=== PATIENT | male | born 1950 | race Caucasian/White ===

== ENCOUNTER 2018-02-08 10:10 | Observation (INO) ==
[2018-02-08 10:17] VITALS: TEMP 97.3
[2018-02-08] MEDS ORDERED: Sod Chloride 0.9% Inj 1,000 ML IV.CONT SCH ×2 (11:00→21:00)
[2018-02-08 11:11] VITALS: RESP 18
[2018-02-08 11:33] LABS: Baso % (Auto) 0.3 % (0.0-2.0); Eos % (Auto) 0.1 % (0.0-4.0); Hematocrit 23.1 % (39.0-51.0); Hemoglobin 8.2 gm/dL (13.0-17.0); Lymph # (Auto) 0.7 th/mm3 (1.0-4.8); Lymph % (Auto) 7.8 % (9.0-44.0); Mean Corpuscular HGB Conc 35.4 % (32.0-36.0); Mean Corpuscular Hemoglobin 31.6 pg (27.0-34.0); Mean Corpuscular Volume 89.1 fL (80.0-100.0); Mean Platelet Volume 6.6 fL (7.0-11.0); Mono # (Auto) 1.6 th/mm3 (0.0-0.9); Mono % (Auto) 18.3 % (0.0-8.0); Neut # (Auto) 6.6 th/mm3 (1.8-7.7); Neut % (Auto) 73.5 % (16.0-70.0); Platelet Count 298 th/mm3 (150-450); Red Cell Distribution Width 12.6 % (11.6-17.2); White Blood Count 8.9 th/mm3 (4.0-11.0)
--- NOTE | 2018-02-08 11:40 | ED ---
HPI General Chief complaint: Dizziness Stated complaint: Cardiac Time Seen by Provider: 02/08/18 11:08 History of Present Illness HPI narrative: 67-year-old male with a history of hypertension, hyperlipidemia, CAD, TIA, RA, GERD, stage IV lung cancer currently on chemotherapy presents to the emergency department for evaluation of lightheadedness and low blood pressure. Patient states that this morning about 30 minutes after taking his blood pressure medications and eating his breakfast he felt suddenly lightheaded and states he was "seeing spots." States that he felt as though he was going to pass out however never lost consciousness, denies any falls. States that he checked his blood pressure when this occurred and the reading was 63/37, he drank some water and rechecked it and it was 84/50. States that this lasted about 1 hour. States that he is no longer having any of these symptoms. He denies any associated chest pain, shortness of breath, difficulty breathing, nausea, vomiting, diarrhea, black or bloody stool, abdominal pain, numbness or tingling, weakness. The patient is here with his visiting from [place] for the week, they will go home on Tuesday. He received his first IV chemotherapy and immunotherapy treatment 01/12/18. No other complaints or concerns. Related Data Home Medications Medication Instructions Recorded Confirmed amlodipine 5 mg PO DAILY 02/08/18 02/08/18 ascorbic acid (vitamin C) [Vitamin 1,000 mg PO DAILY 02/08/18 02/08/18 C] aspirin 162 mg PO DAILY 02/08/18 02/08/18 atorvastatin 60 mg PO DAILY 02/08/18 02/08/18 calcium carbonate 500 mg PO BID 02/08/18 02/08/18 carvedilol 6.25 mg PO DAILY 02/08/18 02/08/18 clopidogrel [Plavix] 75 mg PO DAILY 02/08/18 02/08/18 folic acid 1 mg PO DAILY 02/08/18 02/08/18 leflunomide [Arava] 20 mg PO DAILY 02/08/18 02/08/18 losartan-hydrochlorothiazide 1 tab PO DAILY 02/08/18 02/08/18 multivitamin with minerals 1 tab PO DAILY 02/08/18 02/08/18 [Multiple Vitamin-Minerals] omeprazole 20 mg PO DAILY 02/08/18 02/08/18 prochlorperazine maleate 10 mg PO Q6H PRN 02/08/18 02/08/18 Allergies Allergy/AdvReac Type Severity Reaction Status Date / Time ciprofloxacin [From Cipro] Allergy Hives Verified 02/08/18 10:28 Review of Systems ROS: all other systems reviewed are negative [facility] Medical History Medical History CAD (coronary artery disease) (Acute) 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 (Acute) Hypercholesterolemia (Acute) Hypertension (Acute) Lung cancer (Acute) Pulmonary fibrosis (Acute) Rheumatoid arthritis (Acute) TIA (transient ischemic attack) (Acute) Surgical History Surgical History History of vasectomy (Acute) Social History Social History Smoking Status: Former smoker How Often Do You Have a Drink Containing Alcohol: Monthly or less Recent Travel in [facility] within the Last 8 Weeks: Yes Recent Out of Country Travel within the Last 8 Weeks: No Immunization History Tetanus Immunization: <5 Years Hx Influenza Vaccine This Season: Yes Exam Narrative Exam Narrative: GENERAL: Thin pleasant male patient in no acute distress who is nontoxic appearing. SKIN: Warm and dry. HEAD: Normocephalic and atraumatic. EYES: No injection, drainage, or hyphema noted. PERRLA. EOMI. ENT: No nasal drainage noted. Oropharynx is clear NECK: Supple and the trachea is midline. CARDIOVASCULAR: Regular rate and rhythm. RESPIRATORY: Breath sounds are equal bilaterally with no accessory muscle use, wheezing, rhonchi, or crackles. GASTROINTESTINAL: Abdomen is soft, non-tender, and nondistended. MUSCULOSKELETAL: No obvious deformities, swelling, cyanosis, or ecchymosis is present throughout the upper and lower extremities. Patient has full range of motion without any signs of neurovascular compromise. Distal pulses are 2+ throughout. NEUROLOGICAL: Awake, alert, and oriented. Normal speech and gait. Cranial nerves are grossly intact. Procedures Hemaprompt Stool Procedural Steps Taken: specimen placed in appropriate test area, developer placed on specimen and control areas and controls appropriately positive and negative Hemaprompt Stool Result: negative Course Initial Documented Vital Signs Temperature 97.3 F L 02/08/18 10:16 Pulse Rate 82 02/08/18 10:16 Respiratory Rate 15 02/08/18 10:16 Blood Pressure 83/53 L 02/08/18 10:16 Pulse Oximetry 96 02/08/18 10:16 Last Documented Vital Signs Temperature 97.3 F L 02/08/18 10:16 Pulse Rate 77 02/08/18 11:09 Respiratory Rate 18 02/08/18 11:09 Blood Pressure 94/50 L 02/08/18 11:09 Pulse Oximetry 95 02/08/18 11:09 Medical Decision Making MDM Narrative Medical decision making narrative: 67-year-old male presents to the emergency department for evaluation of lightheadedness and presyncopal symptoms with low blood pressure. Patient is afebrile, vital signs are stable. His blood pressure is noted to be low 94/50. IV access is obtained, labs of been drawn and sent. Patient is placed on cardiac telemetry and pulse oximetry monitoring. Patient is administered IV fluids. EKG shows sinus rhythm with lateral and inferior ST changes of indeterminant age , no acute ST elevations or depressions. CBC shows anemia with a hemoglobin 8.2, hematocrit 23.1. Stool guaiac negative. CMP shows potassium is slightly low at 3.4 and sodium is a little low at 135, otherwise unremarkable. Troponin is 0.04. BNP is unremarkable. Patient's blood pressure has improved with fluids. Given his multiple comorbidities and risk factors I think it is appropriate for the patient to be kept in observation on tele with repeat cardiac enzymes. I spoke with Dr. Armstrong [facility] who agrees to accept patient to his service. Medical Screen Exam Complete: Yes Emergency Medical Condition: Yes Differential Diagnosis Differential Diagnosis: Dehydration versus medication reaction versus electrolyte abnormality versus anemia Lab Data Result diagrams: 02/08/18 11:03 02/08/18 11:03 Lab Results 02/08/18 02/08/18 02/08/18 Range/Units 11:03 11:03 11:03 WBC 8.9 (4.0-11.0) th/mm3 RBC 2.60 L (4.50-5.90) mil/mm3 Hgb 8.2 L (13.0-17.0) gm/dL Hct 23.1 L (39.0-51.0) % MCV 89.1 (80.0-100.0) fL MCH 31.6 (27.0-34.0) pg MCHC 35.4 (32.0-36.0) % RDW 12.6 (11.6-17.2) % Plt Count 298 (150-450) th/mm3 MPV 6.6 L (7.0-11.0) fL Neut % (Auto) 73.5 H (16.0-70.0) % Lymph % (Auto) 7.8 L (9.0-44.0) % [place] % (Auto) 18.3 H (0.0-8.0) % Eos % (Auto) 0.1 (0.0-4.0) % Baso % (Auto) 0.3 (0.0-2.0) % Neut # (Auto) 6.6 (1.8-7.7) th/mm3 Lymph # (Auto) 0.7 L (1.0-4.8) th/mm3 [place] # (Auto) 1.6 H (0.0-0.9) th/mm3 Eos # (Auto) 0.0 (0.0-0.4) th/mm3 Baso # (Auto) 0.0 (0.0-0.2) th/mm3 WBC Differential . Differential Comment Auto diff final Sodium 135 L (136-145) meq/L Potassium 3.4 L (3.5-5.1) meq/L Chloride 100 (98-107) meq/L Carbon Dioxide 25.0 (21.0-32.0) meq/L Anion Gap 10 (5-15) meq/L BUN 15 (7-18) mg/dL Creatinine 1.00 (0.60-1.30) mg/dL Estimated GFR 75 L (>89) mL/min Random Glucose 113 H (74-106) mg/dL Calcium 7.9 L (8.5-10.1) mg/dL Total Bilirubin 0.4 (0.2-1.0) mg/dL AST 32 (15-37) U/L ALT 24 (12-78) U/L Alkaline Phosphatase 118 H (45-117) U/L Troponin I 0.04 (0.02-0.05) ng/mL B-Natriuretic Peptide 82 (0-100) pg/mL Total Protein 6.0 L (6.4-8.2) g/dL Albumin 2.5 L (3.4-5.0) g/dL Imaging Data Radiologist's impression: Chest X-Ray 02/08/18 11:25 CONCLUSION: Bilateral pulmonary infiltrates most pronounced within the left upper lobe. Discharge Plan Physicians Team ED Provider: Deshpande,Peter ED Midlevel Provider: Gifty Win Primary Care Provider: UNKNOWN, Rxs /Orders / Referrals /Forms Prescriptions: No Action atorvastatin 40 mg Tablet 60 mg PO DAILY RF: 0 carvedilol 6.25 mg Tablet 6.25 mg PO DAILY RF: 0 calcium carbonate 500 mg calcium (1,250 mg) Capsule 500 mg PO BID RF: 0 ascorbic acid (vitamin C) [Vitamin C] 1,000 mg Tablet Extended Release 1,000 mg PO DAILY RF: 0 clopidogrel [Plavix] 75 mg Tablet 75 mg PO DAILY RF: 0 amlodipine 5 mg Tablet 5 mg PO DAILY RF: 0 prochlorperazine maleate 10 mg Tablet 10 mg PO Q6H PRN (Reason: Nausea) RF: 0 leflunomide [Arava] 20 mg Tablet 20 mg PO DAILY RF: 0 omeprazole 20 mg Capsule,Delayed Release(Dr/Ec) 20 mg PO DAILY RF: 0 aspirin 81 mg Tablet,Chewable 162 mg PO DAILY RF: 0 folic acid 1 mg Tablet 1 mg PO DAILY RF: 0 multivitamin with minerals [Multiple Vitamin-Minerals] Tablet 1 tab PO DAILY RF: 0 losartan-hydrochlorothiazide 100-12.5 mg Tablet 1 tab PO DAILY RF: 0 Discharge Interventions Interventions: Vital Signs Last Done: 02/08/18 11:09 Status ED Status: With Doctor
[2018-02-08 11:51] LABS: Albumin 2.5 g/dL (3.4-5.0); Anion Gap 10 meq/L (5-15); Aspartate Aminotransferase 32 U/L (15-37); Blood Urea Nitrogen 15 mg/dL (7-18); Calcium 7.9 mg/dL (8.5-10.1); Chloride 100 meq/L (98-107); Glomerular Filtration Rate 75 mL/min (>89); Glucose,Random 113 mg/dL (74-106); Potassium 3.4 meq/L (3.5-5.1); Sodium 135 meq/L (136-145)
[2018-02-08 11:52] LABS: Alanine Aminotransferase 24 U/L (12-78)
--- NOTE | 2018-02-08 11:53 | XR ---
EXAM DATE: 02/08/2018 11:41 AM EDT AGE/SEX: 67 years / Male INDICATIONS: Short of breath and dizziness. CLINICAL DATA: This is the patient's initial encounter. Patient reports that signs and symptoms have been present for 1 day and indicates a pain score of 0/10. MEDICAL/SURGICAL HISTORY: Carcinoma, lung. . [place]us[place]ort. COMPARISON: No prior exams available for comparison. FINDINGS: A single AP view of the chest demonstrates dense consolidation involving the left upper lobe with les s dense mixed interstitial and intra-alveolar opacities throughout the remaining aspects of both lung s. It is more pronounced on the left. No effusions. Heart is normal in size. Port-A-Cath overlies the right chest. Bony structures are unremarkable. CONCLUSION: Bilateral pulmonary infiltrates most pronounced within the left upper lobe. Electronically signed by: Zeke Davis MD 02/08/2018 11:52 AM EDT
[2018-02-08 11:56] LABS: Alkaline Phosphatase 118 U/L (45-117); Troponin I 0.04 ng/mL (0.02-0.05)
--- NOTE | 2018-02-08 13:06 | ECG ---
Date Performed: 02/08/2018 Time Performed: 10:32:03 PTAGE: 67 years EKG: Sinus rhythm PROBABLE LATERAL MYOCARDIAL INFARCTION INFERIOR MYOCARDIAL INFARCTION ABNORMAL ECG NO PREVIOUS TRACING DOCTOR: Kaz Staton Interpretating Date/Time 02/08/2018 13:04:38
[2018-02-08] MEDS ORDERED: Bisacodyl 10 MG Supp RECTAL PRN (14:06)
[2018-02-08] MEDS ORDERED: Acetaminophen 325 MG Tablet PO PRN (14:06)
--- NOTE | 2018-02-08 14:20 | P.HP ---
History of Present Illness Primary Care Physician: UNKNOWN History of Present Illness: This is a 67-year-old male with a history of hypertension, congestive heart failure, hyperlipidemia, coronary artery disease, TIA, rheumatoid arthritis, GERD and stage IV lung cancer on chemotherapy last treatment January 12, 2018. He presents to the emergency department because of lightheadedness and low blood pressure. Patient was in his usual state of health until this morning. After taking his blood pressure medications and eating his breakfast, he suddenly felt lightheaded and was seeing spots. States he felt he was going to pass out. Denies falls, chest pain, shortness of breath, palpitations, diaphoresis, fever, chills, shortness of breath, abdominal pain, diarrhea and UTI symptoms. Has chronic cough with clear sputum. He checked his blood pressure and was low at 64/40. He drank some water and rechecked it and it was 84/50. States his symptoms lasted for an hour. Denies any recent medication adjustment. In the emergency department, he received fluid hydration and patient states he feels much better. He was able to get out of bed twice with no symptoms. States he lost 30 pounds in the past 3 months. All other systems reviewed negative. Family history no cancer. EKG with tracing interpreted by me with sinus rhythm no ST elevation. 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 Hypercholesterolemia Hypertension Lung cancer Pulmonary fibrosis Rheumatoid arthritis TIA (transient ischemic attack) - Surgical History Surgical History: Surgical History (Last Updated 02/08/18 @ 10:33 by Anne Nieto) History of vasectomy - Tobacco History Smoking Status: Former smoker - Alcohol History How Often Do You Have a Drink Containing Alcohol: Monthly or less - Travel History Recent Travel in the [place] Within the Last 8 Weeks: Yes Recent Travel Out of the Country Within the Last 8 Weeks: No - Immunization History Tetanus Immunization: <5 Years Hx Influenza Vaccine This Season: Yes Medications and Allergies Active Medications: Active Medications Acetaminophen (Tylenol) 650 mg PO Q4H PRN PRN Reason: Temp > 100.4 Al Hydroxide/Mg Hydroxide (Milk Of Magnesia Liq) 30 ml PO Q12H PRN PRN Reason: Mild Constipation Aspirin (Aspirin Chew) 162 mg PO DAILY [facility] Atorvastatin Calcium (Lipitor) 60 mg PO DAILY [facility] Bisacodyl (Dulcolax Supp) 10 mg RECTAL DAILY PRN PRN Reason: SEVERE CONSITIPATION Clopidogrel Bisulfate (Plavix) 75 mg PO DAILY [facility] Folic Acid (Folic Acid) 1 mg PO DAILY [facility] Heparin Sodium (Porcine) (Heparin Inj) 5,000 units SQ Q8H [facility] Sodium Chloride (Ns Inj) 1,000 mls @ 100 mls/hr IV.CONT .Q10H [facility] Last Admin: 02/08/18 11:05 Dose: 100 mls/hr Lactulose (Lactulose Liq) 30 ml PO DAILY PRN PRN Reason: SEVERE CONSITIPATION Non-Formulary Medication (Leflunomide) 20 mg PO DAILY [facility] Non-Formulary Medication (Omeprazole [Omeprazole]) 20 mg PO DAILY [facility] Ondansetron HCl (Zofran Inj) 4 mg IV.PUSH Q6H PRN PRN Reason: NAUSEA OR VOMITING Potassium Chloride (K-Dur) 40 meq PO ONCE ONE Stop: 02/08/18 13:51 Prochlorperazine Maleate (Compazine) 10 mg PO Q6H PRN PRN Reason: Nausea Senna/Docusate Sodium (Sonam-Colace) 1 tab PO BID [facility] Sennosides (Senokot) 17.2 mg PO Q12H PRN PRN Reason: Moderate Constipation Sodium Chloride (Ns Flush) 2 ml IV.FLUSH PRN PRN PRN Reason: FLUSH AFTER USING IV ACCESS Allergies Allergy/AdvReac Type Severity Reaction Status Date / Time ciprofloxacin [From Cipro] Allergy Hives Verified 02/08/18 10:28 Home Medications Medication Instructions Recorded Confirmed Type amlodipine 5 mg PO DAILY 02/08/18 02/08/18 History ascorbic acid (vitamin C) [Vitamin 1,000 mg PO DAILY 02/08/18 02/08/18 History C] aspirin 162 mg PO DAILY 02/08/18 02/08/18 History atorvastatin 60 mg PO DAILY 02/08/18 02/08/18 History calcium carbonate 500 mg PO BID 02/08/18 02/08/18 History carvedilol 6.25 mg PO DAILY 02/08/18 02/08/18 History clopidogrel [Plavix] 75 mg PO DAILY 02/08/18 02/08/18 History folic acid 1 mg PO DAILY 02/08/18 02/08/18 History leflunomide [Arava] 20 mg PO DAILY 02/08/18 02/08/18 History losartan-hydrochlorothiazide 1 tab PO DAILY 02/08/18 02/08/18 History multivitamin with minerals 1 tab PO DAILY 02/08/18 02/08/18 History [Multiple Vitamin-Minerals] omeprazole 20 mg PO DAILY 02/08/18 02/08/18 History prochlorperazine maleate 10 mg PO Q6H PRN 02/08/18 02/08/18 History Exam Vital signs: Vital Signs 02/08/18 10:16 02/08/18 10:29 02/08/18 11:09 Temperature 97.3 F L Pulse Rate 82 77 77 Respiratory Rate 15 20 18 Blood Pressure 83/53 L 97/53 L 94/50 L Pulse Oximetry 96 96 95 02/08/18 12:00 02/08/18 13:00 Temperature Pulse Rate 80 78 Respiratory Rate 18 18 Blood Pressure 107/56 L 106/62 Pulse Oximetry 97 96 Intake & Output 02/07/18 02/08/18 02/08/18 18:59 06:59 18:59 Weight 61.235 kg Narrative: GENERAL: Well-developed, well-nourished in no distress on room air SKIN: Warm and dry. HEAD: Atraumatic. Normocephalic. EYES: Pupils equal and round. No scleral icterus. No injection or drainage. ENT: No nasal bleeding or discharge. Mucous membranes pink and moist. NECK: Trachea midline. No JVD. CARDIOVASCULAR: Regular rate and rhythm. RESPIRATORY: No accessory muscle use. Clear to auscultation. Breath sounds equal bilaterally. GASTROINTESTINAL: Abdomen soft, non-tender, nondistended. MUSCULOSKELETAL: Extremities without clubbing, cyanosis, or edema. No obvious deformities. NEUROLOGICAL: Awake and alert. No obvious cranial nerve deficits. Motor grossly within normal limits. Five out of 5 muscle strength in the arms and legs. Normal speech. PSYCHIATRIC: Appropriate mood and affect; insight and judgment normal. Results - Labs CBC & Chem 7: 02/08/18 11:03 02/08/18 11:03 Labs: Laboratory Results - last 24 hr 02/08/18 02/08/18 02/08/18 11:03 11:03 11:03 WBC 8.9 RBC 2.60 L Hgb 8.2 L Hct 23.1 L MCV 89.1 MCH 31.6 MCHC 35.4 RDW 12.6 Plt Count 298 MPV 6.6 L Neut % (Auto) 73.5 H Lymph % (Auto) 7.8 L [place] % (Auto) 18.3 H Eos % (Auto) 0.1 Baso % (Auto) 0.3 Neut # (Auto) 6.6 Lymph # (Auto) 0.7 L [place] # (Auto) 1.6 H Eos # (Auto) 0.0 Baso # (Auto) 0.0 WBC Differential . Differential Comment Auto diff final Sodium 135 L Potassium 3.4 L Chloride 100 Carbon Dioxide 25.0 Anion Gap 10 BUN 15 Creatinine 1.00 Estimated GFR 75 L Random Glucose 113 H Calcium 7.9 L Total Bilirubin 0.4 AST 32 ALT 24 Alkaline Phosphatase 118 H Troponin I 0.04 B-Natriuretic Peptide 82 Total Protein 6.0 L Albumin 2.5 L - Imaging Impressions Chest X-Ray 02/08/18 11:25 CONCLUSION: Bilateral pulmonary infiltrates most pronounced within the left upper lobe. Caprini VTE Risk Assessment Caprini VTE Risk Assessment: Moderate/High Risk (score >= 2) Caprini Risk Assessment Model: Point Value = 1 Point Value = 2 Point Value = 3 Point Value = 5 Age 41-60 Minor surgery BMI > 25 kg/m2 Swollen legs Varicose veins or History of unexplained or recurrent spontaneous Oral contraceptives or hormone replacement Sepsis (< 1 month) Serious lung disease, including pneumonia (< 1 month) Abnormal pulmonary function Acute myocardial infarction Congestive heart failure (< 1 month) History of inflammatory bowel disease Medical patient at bed rest Age 61-74 Arthroscopic surgery Major open surgery (> 45 min) Laparoscopic surgery (> 45 min) Malignancy Confined to bed (> 72 hours) Immobilizing plaster cast Central venous access Age >= 75 History of VTE Family history of VTE Factor V Leiden Prothrombin [id number] Lupus anticoagulant Anticardiolipin antibodies Elevated serum homocysteine Heparin-induced thrombocytopenia Other congenital or acquired thrombophilia Stroke (< 1 month) Elective arthroplasty Hip, pelvis, or leg fracture Acute spinal cord injury (< 1 month) Prophylaxis Regimen: Total Risk Factor Score Risk Level Prophylaxis Regimen 0-1 Low Early ambulation 2 Moderate Order ONE of the following: *Sequential Compression Device (SCD) *Heparin 5000 units SQ BID 3-4 Higher Order ONE of the following medications: *Heparin 5000 units SQ TID *Enoxaparin/Lovenox 40 mg SQ daily (WT < 150 kg, CrCl > 30 mL/min) *Enoxaparin/Lovenox 30 mg SQ daily (WT < 150 kg, CrCl > 10-29 mL/min) *Enoxaparin/Lovenox 30 mg SQ BID (WT < 150 kg, CrCl > 30 mL/min) AND/OR *Sequential Compression Device (SCD) 5 or more Highest Order ONE of the following medications: *Heparin 5000 units SQ TID (Preferred with Epidurals) *Enoxaparin/Lovenox 40 mg SQ daily (WT < 150 kg, CrCl > 30 mL/min) *Enoxaparin/Lovenox 30 mg SQ daily (WT < 150 kg, CrCl > 10-29 mL/min) *Enoxaparin/Lovenox 30 mg SQ BID (WT < 150 kg, CrCl > 30 mL/min) AND *Sequential Compression Device (SCD) Assessment and Plan - Plan This is a 67-year-old male with a history of hypertension, congestive heart failure, hyperlipidemia, coronary artery disease, TIA, rheumatoid arthritis, GERD and stage IV lung cancer on chemotherapy last treatment January 12, 2018. He presents to the emergency department because of lightheadedness and low blood pressure. Near-syncope secondary to hypotension with history of hypertension on multiple antihypertensives and stage IV lung cancer on chemotherapy with associated weight loss. He feels better with fluid hydration. Will continue cautious hydration history of heart failure. Hold BP medications and obtain orthostatic vital signs in the morning. Fall precautions. Physical therapy evaluation. No evidence of infection at this time. Abnormal chest x-ray finding likely secondary to lung cancer Hypokalemia. Replace with 40 mg p.o. and check magnesium. Anemia hemoglobin 8.2. No gross bleeding. Repeat CBC in the morning. He was guaiac negative in the ED DVT prophylaxis with subcu heparin and SCD. Discharge Planning: Patient and daughter
[2018-02-08] MEDS ORDERED: Heparin - SQ 10,000 UNITS/ML Vial SQ SCH (14:30)
[2018-02-08 14:54] VITALS: BP 131/65; PULSE 81; O2SAT 98
--- NOTE | 2018-02-08 17:33 | P.AMA ---
AMA Note - AMA Note AMA Statement: Patient Danish Perez has decided to leave the hospital against medical advice. This patient has the capacity to refuse care and understands the risks of leaving, including permanent disability and/or , and has had an opportunity to ask questions about his/her condition. The patient has been informed that he/she may return for care at any time, and follow up has been arranged/advised. - AMA Note Patient Condition on Discharge: Stable
[2018-02-08] MEDS ORDERED: Senna/Docusate Sodium 8.6/50 MG Tablet PO SCH (21:00)
[2018-02-09] MEDS ORDERED: LEFLUNOMIDE 20 MG PO SCH (09:00)
[2018-02-09] MEDS ORDERED: [UNRECOGNIZED DRUG - OTHER] PO SCH (09:00)
[2018-02-09] MEDS ORDERED: Pantoprazole Sodium 20 MG DR Tablet PO SCH (09:00)
[2018-02-09] MEDS ORDERED: Folic Acid 1 MG Tablet PO SCH (09:00)
== END 2018-02-08 18:15 | disposition left against medical advice (07) ==
LOC: NEPE 10:10 → NEDA 10:10
PROVIDERS: ADMIT Internal Medicine; ATTEND Internal Medicine